=== PATIENT | female | born 2000 | race Two or more races ===

== ENCOUNTER 2023-07-14 08:39 | Emergency (ER) | payer MEDICAID ==
[~2023-07-14] VITALS: Ht 162.6 cm; Wt 59.0 kg
[2023-07-14 08:44] VITALS: O2SAT 97
[2023-07-14] MEDS: ACETAMINOPHEN 325MG TABLET PO ONE (09:46)
[2023-07-14] MEDS ORDERED: HYDR-4001 MT (10:42)
[2023-07-14] MEDS ORDERED: TOPUD MT (11:50)
[2023-07-14] MEDS ORDERED: CYCL25PO15 MT (11:50)
[2023-07-14] MEDS ORDERED: IBUP-1523 MT (11:50)
[2023-07-14 12:02] VITALS: BP 111/53; PULSE 67; RESP 17; TEMP 97.7
== END 2023-07-14 12:12 | disposition home or self-care (01) ==
LOC: ER 08:39
DX: M54.2 Cervicalgia (principal)
CPT/HCPCS: 72050; 72100; 81025; 99284